=== PATIENT | male | born 1985 | race Caucasian/White ===

== ENCOUNTER 2023-10-04 02:48 | Observation (INO) | payer OTHER ==
[2023-10-04] MEDS ORDERED: Lidocaine 2% 6 ML (Jelly) SYR ONE (03:29)
[2023-10-04 05:57] LABS: Anion Gap 17 mmol/L (10-20); BUN (Urea Nitrogen) 24 mg/dL (8.9-20.6); Calc. Creatinine Clearance 0 mL/min (70-130); Calcium 9.2 mg/dL (7.8-10.44); Carbon Dioxide 16 mmol/L (22-29); Chloride 111 mmol/L (98-107); Estimated GFR 84; Glucose 128 mg/dL (70-105); Potassium 4.4 mmol/L (3.5-5.1); Sodium 140 mmol/L (136-145)
[2023-10-04 05:58] LABS: #Basophils 0.09 10x3/uL (0.0-0.2); #Eosinphils 0.77 10x3/uL (0.0-0.5); #Neutrophils 7.26 10x3/uL (1.5-8.4); %Basophils 0.9 % (0.0-2.0); %Eosinophils 7.5 % (0.0-6.0); %Lymphocytes 13.7 % (18.0-47.0); %Monocytes 6.8 % (0.0-10.0); %Neutrophils 70.8 % (40.0-75.0); Hematocrit 39.2 % (38.8-50.0); Hemoglobin 13.9 g/dL (13.5-17.5); Mean Corpuscular HGB CONC 35.5 g/dL (32.0-36.0); Mean Corpuscular Hemoglobin 31.1 pg (27.0-33.0); Mean Corpuscular Volume 87.7 fL (81.2-95.1); Mean Platelet Volume 9.9 fL (7.4-10.4); Platelet Count 260 10x3/uL (150-450); RBC Distribution Width 12.8 % (11.5-14.5); Red Blood Cell (RBC) Count 4.47 10x6/uL (4.32-5.72); White Blood Cell (WBC) Count 10.3 10x3/uL (3.5-10.5)
[2023-10-04] MEDS ORDERED: Iopamidol 300 61% 100 ML VIAL FS ONE (08:00)
== END 2023-10-04 08:23 | disposition short-term general hospital (02) ==
LOC: CSHERS 02:48 → CSHERHOLD 03:36
PROVIDERS: ADMIT Hospitalist; ATTEND Hospitalist
DX: S39.840A Fracture of corpus cavernosum penis, initial encounter (principal); S37.39XA Other injury of urethra, initial encounter; N48.89 Other specified disorders of penis; Z98.890 Other specified postprocedural states; X58.XXXA Exposure to other specified factors, initial encounter
CPT/HCPCS: 51610; 74450; 80048; 85025; 99284; G0378; Q9967